=== PATIENT | female | born 2000 | race Caucasian/White ===

== ENCOUNTER 2023-04-24 19:55 | Emergency (ER) | payer BC, OTHER, SELFPAY ==
[2023-04-24 19:55] VITALS: BP 142/72; BMI 39.4
--- NOTE | 2023-04-24 21:04 | ED.GENMED ---
History of Present Illness
General
Chief Complaint: Cardiac Symptoms
Source: patient
Time Seen by Provider: 04/24/23 20:53
Travel History
Have you had any contact with someone who has COVID-19?: No
Do you have any symptoms of coronavirus? Fever > 100 degrees, chills, cough, shortness of breath, sore throat, loss of taste or smell, muscle aches, or headache?: No
History of Present Illness
History of Present Illness:
22-year-old female presents complaining of palpitations. Patient states that she has been experiencing this on and off for the past 4 to 5 days. She feels extra beats 2 or 3 times every minute. No fever or chills. No unintentional weight loss or
weight gain. She is eating and drinking normally. Patient denies caffeine or energy drink use. No chest pain. Patient states she does feel short of breath with exertion but does not have any shortness of breath at rest. She denies any pleuritic
chest pain. No PE risk factors.
Past History
Past History
ED Past Medical History: None
ED Past Surgical History: None
Social History
Tobacco: Non-smoker
Phy Exam
Physical Exam
Physical Exam:
General: Awake, Alert, Oriented X3. No acute distress.
Vitals: unremarkable
Head: Atraumatic
Eyes: Pupils equal, EOMI
Throat: Airway intact, no exudates
Neck: Trachea midline
Lungs: Clear and equal b/l
Heart: Regular rate, no murmurs
Abd: Soft, Nontender, No pulsatile mass
Neuro: Nonfocal
Skin: Warm, dry, no rash
Extremities: pulses equal b/l, no edema
Course
Orders/Labs/Results
Orders:
Orders
04/24/23 19:58
EKG [Electrocardiogram (*1)] Urgent
Reason for Study: Palpitations
EKG- Treatment ONCE
04/24/23 21:03
Test Result ONCE
04/24/23 21:17
Basic Metabolic Panel Urgent
Complete Blood Count/No Diff Urgent
HCG, Urine Qualitative Screen Urgent
Date Specimen was Collected: 04/24/23
Time Specimen was Collected: 21:17
Magnesium Urgent
Urinalysis Reflex To Culture Urgent
Date Specimen was Collected: 04/24/23
Time Specimen was Collected: 21:17
Abnormal Lab Results
04/24/23
21:17
Hct 36.5 L %
(37.0-47.0)
BUN 18 H mg/dl
(7-17)
04/24/23 21:17
04/24/23 21:17
Vital Signs
Initial and Last Documented VS:
Initial Vital Signs
Temp Pulse Resp BP Pulse Ox
98.2 F 67 20 142/72 99
04/24/23 19:55 04/24/23 19:55 04/24/23 19:55 04/24/23 19:55 04/24/23 19:55
Last Documented Vital Signs
Temp Pulse Resp BP Pulse Ox
98.2 F 65 14 103/61 99
04/24/23 19:55 04/24/23 22:00 04/24/23 22:00 04/24/23 22:00 04/24/23 22:00
MDM/Problems Addressed
Differential Diagnosis Includes:
PVCs, PACs, electrode abnormality
MDM/Problems Addressed:
Labs are unremarkable. Monitor shows occasional PVCs. Patient stable for discharge. Recommend avoiding stimulants and maintaining hydration.
*Pulse Oximetry
Patient hypoxic: no
*EKG
Interpreted by ED Provider?: Yes
Interpretation: normal
Heart Rate: 68
Rate: normal
Rhythm: sinus and PVC's
Mckin[place]: normal axis
Interval: normal interval
QRS Pattern: normal QRS
Ischemia: no ischemia
*Utility Driver Interpretation
Rate: normal
Interpretation: normal
Rhythm: sinus
*Critical Care Note
Total Time (30-74mins, 75-104mins- exclusive of procedures): Not Applicable
ED Attending Note
-
Portions of this chart may have been created with voice recognition software.� Occasional wrong word or��sound alike� substitutions may have occurred due to the inherent limitations of voice recognition software.
Discharge Plan
Departure
Patient Disposition: Home (Routine Discharge)
Date of Disposition: 04/24/23
Time of Disposition: 21:59
Patient with high blood pressure during this ER visit?: No
Condition: Good
Discharge Problem:
PVC's (premature ventricular contractions)
Prescriptions:
No Action
clonidine HCl 0.1 MG tablet
0.05 mg PO BID
Referrals:
Dutch Plata DO [Family Provider] -
Activity Restrictions/Additional Instructions:
Your blood work suggests you should increase your fluid intake. Avoid caffeine and other stimulants.
Interventions
Interventions:
*Risk Screen - Suicide Last Done: 04/24/23 19:55
*General Assessment Last Done: 04/24/23 21:21
*Neglect/Abuse Screening Last Done: 04/24/23 19:55
ED- Fall Risk Assessment Last Done: 04/24/23 22:12
*ED COVID-19 Vaccine History Last Done: 04/24/23 21:21
*Nursing Disposition Last Done: 04/24/23 22:12
ED- Pulmonary Assessment Last Done: 04/24/23 21:20
ED- Cardiac Assessment Last Done: 04/24/23 21:20
Discharge Date and Time
Discharge Date/Time: 04/24/23 22:13
[2023-04-24 21:12] VITALS: BP 112/75
[2023-04-24 21:31] LABS: Hematocrit 36.5 % (37.0-47.0); Hemoglobin 13.1 g/dL (12.0-16.0); Mean Corp Hgb Conc. 35.9 g/dL (33.0-37.0); Mean Corpuscular Hgb 30.5 pg (27.0-31.0); Mean Corpuscular Volume 84.9 fL (81.0-99.0); Mean Platelet Volume 9.6 fL (7.4-10.4); Platelet Count 261 10^3/uL (130-400); White Blood Cell Count 7.4 10^3/uL (4.8-10.8)
[2023-04-24 21:34] LABS: Urine Albumin Negative (Neg - Trace); Urine Bilirubin Negative (Negative); Urine Character Clear (Clear); Urine Color Yellow; Urine Glucose Negative (Negative); Urine Ketone Negative (Negative); Urine Leukocyte Negative (Negative); Urine Nitrite Negative (Negative); Urine Occult Blood Negative (Negative); Urine Specific Gravity 1.005 (<1.030); Urine Urobilinogen Negative (Neg - 1+)
[2023-04-24 21:37] LABS: HCG, Urine Qualitative Screen Negative
[2023-04-24 21:46] LABS: Blood Urea Nitrogen 18 mg/dl (7-17); Calcium 9.5 mg/dl (8.4-10.2); Carbon Dioxide 24 mmol/L (22-30); Chloride 103 mmol/L (98-107); Estimated Creatinine Clearance > 125 ml/min; Glucose 91 mg/dl (70-99); Potassium 3.8 mmol/L (3.5-5.1); Sodium 137 mmol/L (135-145); eGFR > 60.00
[2023-04-24 22:00] VITALS: BP 103/61
== END 2023-04-24 22:13 | disposition home or self-care (01) ==
LOC: EMR 19:55
PROVIDERS: EMERGENCY PHYSICIAN Emergency Medicine; FAMILY PHYSICIAN Family Medicine
DX: I49.3 Ventricular premature depolarization (principal); R06.02 Shortness of breath
CPT/HCPCS: 99283; 80048; 81003; 81025; 83735; 85027; 93005

== ENCOUNTER 2025-03-13 18:30 | Emergency (ER) | payer BC, OTHER, SELFPAY ==
[2025-03-13 18:37] VITALS: BP 125/82
[2025-03-13 19:12] LABS: Hematocrit 37.3 % (37.0-47.0); Hemoglobin 13.0 g/dL (12.0-16.0); Mean Corp Hgb Conc. 34.9 g/dL (33.0-37.0); Mean Corpuscular Volume 85.9 fL (81.0-99.0); Nucleated Red Blood Cells % 0 %; Platelet Count 315 10^3/uL (130-400); Red Cell Dist. Width 11.6 % (11.5-14.5)
[2025-03-13 19:25] LABS: ALT (SGPT) 15 U/L (0-35); AST (SGOT) 21 U/L (14-36); Albumin 4.6 g/dl (3.5-5.0); Alkaline Phosphatase 57 U/L (38-126); Blood Urea Nitrogen 16 mg/dl (7-17); Calcium 10.1 mg/dl (8.4-10.2); Carbon Dioxide 27 mmol/L (22-30); Chloride 103 mmol/L (98-107); Glucose 90 mg/dl (70-99); Potassium 4.5 mmol/L (3.5-5.1); Sodium 136 mmol/L (135-145); Total Protein 7.5 g/dl (6.3-8.2); eGFR > 60.00
[2025-03-13 19:36] LABS: Troponin I < 0.012 ng/ml
[2025-03-13 21:53] VITALS: BP 98/56; BMI 37.1
[2025-03-13 21:58] VITALS: BP 102/68
--- NOTE | 2025-03-13 23:26 | ED.GENMED ---
History of Present Illness
General
Chief Complaint: Chest Pain
Source: patient
Time Seen by Provider: 03/13/25 22:22
Nursing documentation reviewed up to this point in time: agreed with
History of Present Illness
History of Present Illness:
Note:
CHIEF COMPLAINT(S)
Intermittent chest pain throughout the day.
HISTORY OF PRESENT ILLNESS
The patient is a 24-year-old female who presented with intermittent chest pain that began at approximately 12:30 PM. The pain initially started on the left side of the chest, spread to the back, and later involved the right side and right back. The
patient describes the pain as being 'all over the chest.' The last episode of pain was about 3.5 to 4 hours ago, while sitting in the waiting room. There is no associated shortness of breath. The patient denies any heavy lifting recently, although
she mentioned lifting a couch weighing approximately 50 to 75 pounds earlier today, with pain beginning about an hour later. The pain does not recur with arm movement, but placing her hands on her head provides relief. The patient has not had a
chest X-ray yet, which is planned for further evaluation.
PAST MEDICAL AND SURIGICAL HISTORY
The patient denies any past medical or surgical history.
SOCIAL HISTORY
The patient quit smoking a few months ago. She denies drug use but reports significant alcohol consumption, especially on weekends. She is currently in nursing school.
PHYSICAL EXAM
General: Alert, no acute distress.
Skin: Warm, dry.
Head: Normocephalic, atraumatic.
Neck: Supple, trachea midline.
Eyes, Ears, Nose, Mouth, and Throat: Oral mucosa moist.
Cardiovascular: Normal peripheral perfusion, no edema.
Respiratory: Respirations are non-labored.
Gastrointestinal: Abdomen nondistended.
Back: Normal range of motion, normal alignment.
Musculoskeletal: Normal range of motion, normal strength.
Neurological: Alert and oriented to person, place, time, and situation, no focal neurological deficit observed.
Psychiatric: Cooperative, appropriate mood and affect.
PLAN
A chest X-ray will be performed to further assess the cause of the chest pain. Based on the presentation, it is suspected to be musculoskeletal in origin.
DIFFERENTIAL DIAGNOSIS
The Differential Diagnosis includes, in no particular order and is not limited to:
1. Musculoskeletal pain
2. Costochondritis
3. Gastroesophageal reflux disease (GERD)
4. Pulmonary conditions such as pleuritis
5. Cardiac etiologies such as pericarditis
6. Anxiety-related chest pain
7. Esophageal spasm
8. Herpes zoster in the early stages
9. Pneumothorax
10. Myocardial infarction (less likely given the patients age and lack of other symptoms)
Disposition:
SUMMARY OF ENCOUNTER
The patient, a 24-year-old female, presented to the emergency department with complaints of intermittent chest pain that began earlier in the day after lifting a couch. The pain was initially left-sided and later spread to the back and right side.
There was no recurrence of pain during her stay in the waiting room, and she reported experiencing relief when placing her hands on her head. A chest X-ray and EKG were performed, both of which were unremarkable. Labs were also normal. Given these
findings and the improvement of her symptoms, the decision was made to manage her conservatively and consider the pain to be musculoskeletal.
DISPOSITION
Discharge.
ASSESSMENT
The patients chest pain is suspected to be musculoskeletal in origin, likely related to the recent physical exertion from lifting a couch.
PLAN
The plan is to discharge the patient with instructions for at-home care and to manage the symptoms with rest and potentially [id number] analgesics. The patient is advised to avoid heavy lifting and to seek follow-up care with a primary care
physician if the symptoms persist or worsen.
INDEPENDENT REVIEW OF LABS AND INTERPRETATION OF TESTS
My independent review of labs is normal.
My independent interpretation of the chest X-ray is unremarkable.
My independent interpretation of the EKG is unremarkable.
PATIENT EDUCATION AND COUNSELING
The patient was educated on the likely musculoskeletal nature of her chest pain and advised to avoid heavy lifting. Instructions were provided regarding signs of worsening symptoms that should prompt immediate medical attention, such as persistent
or increasing pain, shortness of breath, or any new symptoms.
FOLLOW-UP INSTRUCTIONS
The patient is advised to follow up with her primary care physician if symptoms persist or worsen.
MEDICAL DECISION MAKING
- Complexity of Data Reviewed: The differential diagnosis includes musculoskeletal pain, costochondritis, gastroesophageal reflux disease (GERD), pulmonary conditions such as pleuritis, cardiac etiologies such as pericarditis, anxiety-related chest
pain, esophageal spasm, herpes zoster in the early stages, pneumothorax, and myocardial infarction (less likely due to patients age and lack of other symptoms).
- Data:
Category 1
My independent interpretation of the chest X-ray is unremarkable.
My independent interpretation of the EKG is unremarkable.
- Risk:
Consideration of Admission/Observation: Escalation of care including admission/observation was considered given the complexity and risk of the patients presenting complaint, exam findings, and/or their underlying comorbidities. However, ultimately I
feel the patient is safe for outpatient management with close follow up. Reasoning: Work-up reassuring, does not reveal any acute life/organ threatening processes, patients symptoms well controlled upon reevaluation, reexamination is reassuring,
vitals are stable, patient agreeable with discharge, reliable for follow-up.
DIAGNOSIS
Musculoskeletal chest pain (ICD-10: R07.89).
Past History
Past History
ED Past Medical History: None
ED Past Surgical History: None
Social History
Tobacco: Non-smoker
Phy Exam
Physical Exam
Physical Exam:
.
Scores
Heart Score for Chest Pain Patients
STEMI patient?: Not applicable
Course
Orders/Labs/Results
Orders:
Orders
03/13/25 18:49
Complete Blood Count/With Diff Urgent
Comprehensive Metabolic Panel Urgent
Troponin I Urgent
03/13/25 22:58
CR Chest - 2 Views Urgent
Comment:
Reason For Exam: cp
03/13/25 18:49
03/13/25 18:49
Vital Signs
Initial and Last Documented VS:
Initial Vital Signs
Temp Pulse Resp BP Pulse Ox
98.2 F 73 20 125/82 100
03/13/25 18:37 03/13/25 18:37 03/13/25 18:37 03/13/25 18:37 03/13/25 18:37
Last Documented Vital Signs
Temp Pulse Resp BP Pulse Ox
98.2 F 69 16 102/68 100
03/13/25 18:37 03/13/25 22:00 03/13/25 22:00 03/13/25 21:58 03/13/25 23:27
*Radiology
Radiology exam reviewed: all reviewed NAD by ED Provider
*Pulse Oximetry
SaO2: 100
Oxygen Mode of Delivery: Room air
Patient hypoxic: no
*Critical Care Note
Total Time (30-74mins, 75-104mins- exclusive of procedures): Not Applicable
ED Attending Note
-
Portions of this chart may have been created with voice recognition software.� Occasional wrong word or��sound alike� substitutions may have occurred due to the inherent limitations of voice recognition software.
Discharge Plan
Departure
Patient Disposition: Home (Routine Discharge)
Date of Disposition: 03/13/25
Time of Disposition: 23:26
Patient with high blood pressure during this ER visit?: No
Condition: Good
Discharge Problem:
Chest pain
Instructions: Chest Pain PCP Follow Up
Prescriptions:
New
diclofenac sodium 75 mg tablet,delayed release (DR/EC)
75 mg PO BID Qty: 10 0RF
No Action
clonidine HCl 0.1 MG tablet
0.05 mg PO BID
Referrals:
Dutch Plata DO [Family Provider, Family Practice]
Activity Restrictions/Additional Instructions:
Your prescriptions were sent electronically to the pharmacy that you specified.
Thank You for choosing [facility].
It was a pleasure meeting you and taking part in your care. We hope for your continued healing and wellness.
Please read discharge instructions in their entirety. However, they are for general education and may not describe your exact diagnosis at discharge. Information on your ER visit and medical conditions were discussed with you along with appropriate
follow up information...
If indicated, please take your medications as instructed and indicated on discharge paperwork.
Please schedule a follow up appointment as directed. Call to schedule an appointment
Please return to the emergency department with ANY change in, persisting, or worsening of symptoms. If any of your symptoms do not improve, or persist, or become more severe within 6-12 hours, please return to the emergency department for further
care.
Please return to the emergency department if you develop a headache, neck pain/stiffness, fever greater than 100.4F, chest pain, shortness of breath, persistent nausea, vomiting, slurred speech, difficulty walking, numbness/tingling, weakness, signs
of infection or any other symptoms that are worrisome to you.
If you have any questions or concerns please do not hesitate to call the Hospital at .
Interventions
Interventions:
*General Assessment Last Done: 03/13/25 18:37
*Neglect/Abuse Screening Last Done: 03/13/25 18:37
*ED COVID-19 Vaccine History Last Done: 03/13/25 21:55
*ED Influenza Vaccine History Last Done: 03/13/25 21:55
[facility] Risk Assessment Tool Last Done: 03/13/25 21:54
*Risk Screen - Suicide (C-SSRS) Last Done: 03/13/25 18:37
*Nursing Disposition Last Done: 03/13/25 23:43
ED- Cardiac Assessment Last Done: 03/13/25 21:55
Discharge Date and Time
Discharge Date/Time: 03/13/25 23:44
Print Language: SAMI
== END 2025-03-13 23:44 | disposition home or self-care (01) ==
LOC: EMR 18:30
PROVIDERS: Emergency Medicine; EMERGENCY PHYSICIAN Student in an Organized Health Care Education/Training Program; FAMILY PHYSICIAN Family Medicine
DX: R07.89 Other chest pain (principal); Z87.891 Personal history of nicotine dependence
CPT/HCPCS: 99285; 71046; 80053; 84484; 85025; 93005